=== PATIENT | male | born 1950 | race Caucasian/White ===

== ENCOUNTER 2018-04-08 21:03 | Emergency (ER) | payer MEDICARE, BC ==
[~2018-04-08] VITALS: Ht 177.8 cm; Wt 120.5 kg
[~2018-04-08 21:03] MED LIST: ASPIRIN 81M81 MG/TA2 PO; ASPIRIN E.C. 8181 MG PO; BRILINTA90 MG PO; CEPHALEXIN500 M1 PO; COLCRYS0.6 MG PO; DESYREL 50MG50 MG PO; EFFEXOR 75M75 MG/TAB PO; EFFEXOR-XR150 MG PO; IMDUR 30MG30 MG/TAB PO; INDOCIN 25MG CA25 MG PO; LIPITOR 10MG10 MG PO; LIPITOR 80MG80 MG PO; LOPRESSOR 550 MG/TAB PO; MOBIC15 MG PO; NORCO 325 MG-51 TAB PO; NORVASC 10MG10 MG PO; OMEGA 31000 MG; PACERONE200 MG PO; PRINIVIL2.5 MG PO; THORAZINE 225 MG/TAB PO; XANAX 1MG1 MG PO; XARELTO20 MG PO; ZESTRIL40 MG PO
[2018-04-08 21:19] VITALS: TEMP 97.7
[2018-04-08] MEDS ORDERED: ATARAX50 MG PO (21:56)
[2018-04-08 21:58] VITALS: BP 166/88; PULSE 80
== END 2018-04-08 22:01 | disposition home or self-care (01) ==
LOC: COL.ER 21:03
DX: F41.0 Panic disorder [episodic paroxysmal anxiety] (principal)

== ENCOUNTER 2018-05-06 01:55 | Emergency (ER) | payer MEDICARE, BC ==
[~2018-05-06] VITALS: Ht 177.8 cm; Wt 119.5 kg
[~2018-05-06 01:55] MED LIST changes: +ATARAX50 MG PO
[2018-05-06 01:59] VITALS: BP 146/81; TEMP 97.6
[2018-05-06] MEDS ORDERED: ATIVAN 1MG T1 MG/TAB PO (02:21)
[2018-05-06 02:58] VITALS: PULSE 103
== END 2018-05-06 02:59 | disposition home or self-care (01) ==
LOC: COL.ER 01:55
DX: F41.9 Anxiety disorder, unspecified (principal); G47.00 Insomnia, unspecified; I10 Essential (primary) hypertension; I25.10 Atherosclerotic heart disease of native coronary artery without angina pectoris; E78.5 Hyperlipidemia, unspecified; F17.220 Nicotine dependence, chewing tobacco, uncomplicated; Z98.890 Other specified postprocedural states

== ENCOUNTER 2019-11-23 09:01 | Emergency (ER) | payer MEDICARE, BC ==
[~2019-11-23] VITALS: Ht 177.8 cm; Wt 122.7 kg
[~2019-11-23 09:01] MED LIST changes: +ATIVAN 1MG T1 MG/TAB PO
[2019-11-23 09:10] VITALS: BP 160/76; TEMP 97.3
[2019-11-23 09:22] LABS: COLLECTION METHOD CLEAN CATCH
[2019-11-23 09:35] LABS: PH 7 (5-8); SQUAMOUS EPITHELIAL None Seen /hpf; URINE APPEARANCE Cloudy; URINE BACTERIA None Seen /hpf; URINE BILIRUBIN Negative (NEGATIVE); URINE BLOOD 3+ (NEGATIVE); URINE COLOR Red; URINE GLUCOSE 1+ (NEGATIVE); URINE KETONE Negative (NEGATIVE); URINE LEUKOCYTE ESTERASE Negative (NEGATIVE); URINE NITRATE Negative (NEGATIVE); URINE PROTEIN(semi-quant) 2+ (NEGATIVE); URINE RBC >50 /hpf; URINE UROBILINOGEN Negative (NEGATIVE)
[2019-11-23 09:37] LABS: BASO % 0.6 % (0.0-2.0); EOS # 0.1 (0.0-0.7); EOS % 2.2 % (0-4.0); GRAN # 3.4 (1.4-6.5); GRAN % 66.6 % (42.2-75.2); HEMATOCRIT 43.9 % (42.0-52.0); HEMOGLOBIN 14.7 g/dl (13.5-18.0); LYMPH # 1.1 (1.2-3.4); LYMPH % 21.5 % (20.0-51.0); MEAN CELL VOLUME 96 fl (80.0-100.0); MEAN CORPUSCULAR HEMOGLOBIN 32 pg (27.0-31.0); MEAN CORPUSCULAR HGB CONC 34 g/dl (33.0-37.0); MEAN PLATELET VOLUME 9.2 fl (7.4-10.4); MONO # 0.5 (0.1-0.6); MONO % 8.9 % (1.7-9.3); PLATELET COUNT 189 K/mm3 (130-400); RED BLOOD COUNT 4.57 M/mm3 (4.20-5.60); REDCELL DISTRIBUTION WIDTH-CV 14.3 % (11.5-14.5)
[2019-11-23 09:41] LABS: INR 1.3 (0.8-3.0); PROTHROMBIN TIME 15.6 SECONDS (9.7-12.8)
[2019-11-23 09:57] LABS: ALANINE AMINOTRANSFERASE 30 U/L (4-49); ALBUMIN 4.2 gm/dL (3.5-5.0); ALKALINE PHOSPHATASE 110 U/L (50-136); ANION GAP 5 mmol/L (7-16); AST,SGOT 27 U/L (15-37); BILIRUBIN,TOTAL 0.5 mg/dL (0.0-1.0); BLOOD UREA NITROGEN 17 mg/dL (9-20); CALCIUM 9.2 mg/dL (8.4-10.2); CARBON DIOXIDE 26 mmol/L (22-30); CHLORIDE 108 mmol/L (98-107); CREATININE, serum 0.91 (0.66-1.25); GLUCOSE 158 mg/dL (74-106); POTASSIUM 3.9 mmol/L (3.4-5.0); SODIUM 140 mmol/L (137-145); TOTAL PROTEIN 7.5 gm/dL (6.4-8.2)
[2019-11-23 09:59] LABS: C-REACTIVE PROTEIN < 0.5 mg/dL (0.0-0.9)
[2019-11-23 10:34] VITALS: PULSE 71
== END 2019-11-23 10:35 | disposition home or self-care (01) ==
LOC: COL.ER 09:01
PROVIDERS: Physician Assistant
DX: R31.9 Hematuria, unspecified (principal); I10 Essential (primary) hypertension; E78.5 Hyperlipidemia, unspecified; F32.9 Major depressive disorder, single episode, unspecified; I48.91 Unspecified atrial fibrillation; F17.220 Nicotine dependence, chewing tobacco, uncomplicated; I25.10 Atherosclerotic heart disease of native coronary artery without angina pectoris; Z79.01 Long term (current) use of anticoagulants; Z95.5 Presence of coronary angioplasty implant and graft

== ENCOUNTER 2021-02-17 13:28 | Inpatient (IN) | payer MEDICARE, BC ==
[~2021-02-17] VITALS: Ht 177.8 cm; Wt 126.4 kg
[~2021-02-17 13:28] MED LIST changes: +EPA FISH OIL1 SGL PO; -OMEGA 31000 MG
[2021-02-17 14:43] LABS: BASO % 0.3 % (0.0-2.0); EOS # 0.1 (0.0-0.7); EOS % 0.6 % (0-4.0); GRAN % 82.3 % (42.2-75.2); HEMATOCRIT 44.9 % (42.0-52.0); HEMOGLOBIN 14.8 g/dl (13.5-18.0); LYMPH # 0.9 (1.2-3.4); MEAN CELL VOLUME 96 fl (80.0-100.0); MEAN CORPUSCULAR HEMOGLOBIN 32 pg (27.0-31.0); MEAN CORPUSCULAR HGB CONC 33 g/dl (33.0-37.0); MEAN PLATELET VOLUME 9.9 fl (7.4-10.4); MONO # 0.9 (0.1-0.6); MONO % 8.5 % (1.7-9.3); PLATELET COUNT 174 K/mm3 (130-400); RED BLOOD COUNT 4.69 M/mm3 (4.20-5.60); REDCELL DISTRIBUTION WIDTH-CV 14.2 % (11.5-14.5)
[2021-02-17 14:55] LABS: ALANINE AMINOTRANSFERASE 25 U/L (4-49); ALBUMIN 4.3 gm/dL (3.5-5.0); ALKALINE PHOSPHATASE 119 U/L (50-136); ANION GAP 5 mmol/L (7-16); AST,SGOT 25 U/L (15-37); BILIRUBIN,TOTAL 0.7 mg/dL (0.0-1.0); BLOOD UREA NITROGEN 11 mg/dL (9-20); CARBON DIOXIDE 26 mmol/L (22-30); CHLORIDE 107 mmol/L (98-107); CREATININE, serum 0.79 (0.66-1.25); GLUCOSE 93 mg/dL (74-106); POTASSIUM 4.1 mmol/L (3.4-5.0); SODIUM 137 mmol/L (137-145)
[2021-02-17 15:07] LABS: TROPONIN-I < 0.012 ng/mL (0.000-0.035)
--- NOTE | 2021-02-17 19:56 | NUR ---
Pt. laying in bed at this time. Pt. is A&OX3, assessment complete. INT to lt ac patent. Pt. reports pain at a 7 on pain scale. Pt. denies further needs.,
[2021-02-17] MEDS ORDERED: PACERONE200 MG PO (20:02)
[2021-02-17] MEDS ORDERED: FLOMAX 0.40.4 MG/CAP PO (20:10)
[2021-02-17 21:17] VITALS: BP 157/76; PULSE 65; TEMP 98.2
[2021-02-18] VITALS (7 sets, daily range): BP systolic 129–186; BP diastolic 47–68; PULSE 64–76; TEMP 98.2–101.1
--- NOTE | 2021-02-18 08:00 | NUR ---
PATIENT IS A&O. VSS ON TELE. RATES ABD PAIN AT 5/10 AND REQUESTING PAIN MEDS WHEN HE IS DUE. ALL OTHER AM MEDS GIVEN. PATIENT TOLERATING CLEAR LIQUID DIET. NO C/O N/V. IV FLUIDS INFUSING INTO LEFT AC IV VIA PUMP. HEAD TO TOE ASSESSMENT COMPLETE. INDEPENDENT IN ROOM. PATIENT RESTING UP ON BED WITH C-PAP ON. NO OTHER NEEDS AT THIS TIME. CALL LIGHT IN REACH.
--- NOTE | 2021-02-18 12:29 | NUR ---
Sw met with the pt who stated his preference to return home once medically stable. The pt lives at home. The person to notify is Anderson Mccord, life parter (ph# [phone]). The pt is independent on all ADLs and uses a CPAP machine. The pt PCP is Kevin Liriano and gets his medications from [facility] and no troubles obtaining meds cost. The pt has never used HH services before. The pt informed Sw that he has a DPOA-HC and he believes its his son on the document. No other needs stated at this time. Sw to await further recommendations and follow up as needed. D/C: Home.
--- NOTE | 2021-02-18 13:00 | NUR ---
AT BEDSIDE, SEE ORDERS.
--- NOTE | 2021-02-18 16:25 | NUR ---
1515 RN NOTIFIED OF ELEVATED TEMP OF 101.1
--- NOTE | 2021-02-18 16:30 | NUR ---
PATIENT NOTED A TEMP OF 101.1 BUT PATIENT ASYMPTOMATIC. NOTIFIED PROVIDER AND GAVE PRN TYLENOL.
[2021-02-19] VITALS (7 sets, daily range): BP systolic 118–165; BP diastolic 44–64; PULSE 64–74; TEMP 97.8–99
--- NOTE | 2021-02-19 05:53 | NUR ---
RESTING QUIETLY/SLEEPING MOST OF NIGHT. CPAP IN USE. MORPHINE FOR ABDOMINAL PAIN. NO c/o N/V.
[2021-02-19 08:36] LABS: BASO % 0.4 % (0.0-2.0); EOS # 0.2 (0.0-0.7); EOS % 2.2 % (0-4.0); GRAN # 7.9 (1.4-6.5); GRAN % 77.6 % (42.2-75.2); HEMATOCRIT 37.8 % (42.0-52.0); LYMPH % 9.9 % (20.0-51.0); MEAN CELL VOLUME 100 fl (80.0-100.0); MEAN CORPUSCULAR HEMOGLOBIN 33 pg (27.0-31.0); MEAN CORPUSCULAR HGB CONC 33 g/dl (33.0-37.0); MEAN PLATELET VOLUME 9.5 fl (7.4-10.4); MONO % 9.5 % (1.7-9.3); PLATELET COUNT 186 K/mm3 (130-400); RED BLOOD COUNT 3.78 M/mm3 (4.20-5.60); REDCELL DISTRIBUTION WIDTH-CV 14.4 % (11.5-14.5)
[2021-02-19 08:37] LABS: HEMOGLOBIN 12.3 g/dl (13.5-18.0)
[2021-02-19 08:42] LABS: CALCIUM 8.5 mg/dL (8.4-10.2); CREATININE, serum 1.14 (0.66-1.25); POTASSIUM 3.8 mmol/L (3.4-5.0)
--- NOTE | 2021-02-19 12:56 | NUR ---
Initial visit; Patient very pleasant and thanked [employer] Developer for looking in on him and keeping him in her prayers.
--- NOTE | 2021-02-19 20:00 | NUR ---
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 Assessment complete. A&Ox3. Denies nausea/shortness of breath. Rating pain 3/10 to abdomen-states he will call for pain medications if pain level increases. Tolerating PO. SCDs bilat. Plan of care discussed for this shift to include HS meds/pain control/calling for questions/concerns. Verbalizes understanding/denies needs. Call light in reach. Will monitor.
--- NOTE | 2021-02-19 21:00 | NUR ---
Called requestions pain medicaitons-rating pain 5/10 on pain scale to abdomen. [place] given per dr order. Will monitor.
--- NOTE | 2021-02-19 23:30 | NUR ---
Called with c/o pain to abdomen-right side-rating pain 6/10 on pain scale. Pain is described as constant ache with intermittent sharpness. Mission given per dr freeman. Will continue to monitor.
[2021-02-20 03:57] VITALS: BP 122/43; PULSE 60; TEMP 97
[2021-02-20 07:22] LABS: ALBUMIN 3.3 gm/dL (3.5-5.0); BILIRUBIN,TOTAL 0.3 mg/dL (0.0-1.0); CALCIUM 8.4 mg/dL (8.4-10.2); CREATININE, serum 0.97 (0.66-1.25); POTASSIUM 3.8 mmol/L (3.4-5.0); TOTAL PROTEIN 6.5 gm/dL (6.4-8.2)
--- NOTE | 2021-02-20 08:00 | NUR ---
PATIENT IS A&O. VSS ON TELE. PATIENT HAS HX OF A-FIB & PERICARDITIS. HR IS RATE CONTROLED IN THE 60-70'S. PATIENT C/O ABD PAIN RATED AT APPROX 5/10. GAVE PRN NORCO FOR PAIN WITH AM MEDS. NO C/O N/V. LEFT AC IV TO INT. BREAKFAST TRAY ORDERED. HEAD TO TOE ASSESSMENT COMPLETE. PATIENT INDEPENDENT IN ROOM AND REPORTS HE FEELS SO MUCH BETTER. PATIENT HOPING TO DISCHARGE HOME LATER TODAY. HOSPITALIST TEAM AT BEDSIDE, SEE ORDERS.
[2021-02-20 08:13] VITALS: BP 157/57; PULSE 72; TEMP 99.2
[2021-02-20] MEDS ORDERED: NORCO 325 MG-51 TAB PO (08:29)
--- NOTE | 2021-02-20 10:28 | NUR ---
PATIENT DISCHARGING HOME VIA WC TO PERSONAL VEHICLE WITH NIECE. GAVE DISCHARGE INSTRUCTIONS, E-SCRIPT SENT, AND F/U APT DISCUSSED. ANSWERED QUESTIONS/CONCERNS. RN DC'D LEFT AC IV, COVERED SITE WITH GAUZE & COBAN. PATIENT IS DRESSED, PACKED & DISCHARGED.
== END 2021-02-20 10:28 | disposition home health service (06) | DRG 440 ==
LOC: COL.ER 13:28 → SURG 16:25
PROVIDERS: Personal Emergency Response Attendant; Physician Assistant; ADMIT Student in an Organized Health Care Education/Training Program
DX: K85.20 Alcohol induced acute pancreatitis without necrosis or infection (principal); I10 Essential (primary) hypertension; F41.9 Anxiety disorder, unspecified
CPT/HCPCS: 99222-AI; 99232-AI; 99239; J2270; J2405; J7030; Q9967

== ENCOUNTER 2021-11-27 00:01 | Emergency (ER) | payer MEDICARE, BC ==
[~2021-11-27] VITALS: Ht 177.8 cm; Wt 125.0 kg
[~2021-11-27 00:01] MED LIST changes: +FLOMAX 0.40.4 MG/CAP PO
[2021-11-27 00:06] VITALS: TEMP 97.8
[2021-11-27 00:48] VITALS: BP 144/78; PULSE 80
== END 2021-11-27 00:45 | disposition home or self-care (01) ==
LOC: COL.ER 00:01
DX: L76.22 Postprocedural hemorrhage of skin and subcutaneous tissue following other procedure (principal); Z79.01 Long term (current) use of anticoagulants

== ENCOUNTER 2023-04-19 10:36 | Emergency (ER) | payer MEDICARE ==
[~2023-04-19] VITALS: Ht 177.8 cm; Wt 118.2 kg
[2023-04-19 10:48] VITALS: BP 173/84; TEMP 97.7
[2023-04-19] MEDS ORDERED: CEPHALEXIN500 M1 PO (11:29)
[2023-04-19 12:01] VITALS: PULSE 57
== END 2023-04-19 12:01 | disposition home or self-care (01) ==
LOC: COL.ER 10:36
DX: S01.21XA Laceration without foreign body of nose, initial encounter (principal); X58.XXXA Exposure to other specified factors, initial encounter